=== PATIENT | male | born 1955 | race Caucasian/White ===

== ENCOUNTER 2019-03-12 03:43 | Inpatient (IN) ==
[2019-03-12] MEDS ORDERED: Ondansetron 4 MG/2 ML VIAL IVP ONE (03:47)
[2019-03-12] MEDS ORDERED: Morphine Sulfate 2 MG/ML SYRINGE IVP ONE (03:47)
[2019-03-12] MEDS ORDERED: *HR* Heparin 5,000 UNIT/ML VIAL IVP ONE (03:49)
[2019-03-12] MEDS ORDERED: *HR* Ticagrelor 90 MG TABLET PO ONE (03:51)
[2019-03-12] MEDS ORDERED: 0.9 % Sodium Chloride 1,000 ML IVC ONE (03:52)
[2019-03-12] MEDS ORDERED: *HR* Ticagrelor 90 MG TABLET ONE (03:56)
[2019-03-12] MEDS ORDERED: *HR* Heparin 5,000 UNIT/ML VIAL ONE (03:56)
[2019-03-12] MEDS ORDERED: 0.9 % Sodium Chloride 1,000 ML ONE (03:56)
[2019-03-12] MEDS: Nitroglycerin 0.4 MG TAB.SUBL SL PRN ×2 (04:10→13:13)
[2019-03-12 04:16] LABS: Basophils # 0.1 K/mcL (0.0-0.2); Basophils % 1.2 %; Eosinophils # 0.6 K/mcL (0.0-0.6); Eosinophils % 6.6 %; Hematocrit 42.7 % (37.5-50.1); Immature Granulocytes % 0.3 % (0-4); Lymphocytes # 1.6 K/mcL (0.6-4.6); Mean Corpuscular HGB Conc 32.8 g/dL (31.6-35.5); Mean Corpuscular Hemoglobin 27.3 pg (28.0-33.3); Mean Corpuscular Volume 83.4 fL (83.0-100.0); Monocytes # 0.9 K/mcL (0.0-1.3); Monocytes % 10.4 %; Neutrophils # 5.4 K/mcL (1.6-8.9); Platelet Count 289 K/mcL (140-400); Red Blood Count 5.12 M/mcL (4.19-5.50); Red Cell Distribution Width 15.1 % (11.5-14.5); Segmented Neutrophils % 62.5 %; White Blood Count 8.6 K/mcL (4.3-11.1)
[2019-03-12] MEDS ORDERED: Heparin 1,000 UNITS/500 mL 500 ML ONE (04:20)
[2019-03-12] MEDS ORDERED: ISOVUE-370 200 ML INFUS..BTL ONE ×2 (04:20→05:13)
[2019-03-12] MEDS ORDERED: Nitroglycerin 1,000 MCG/10 ML VIAL IV ONE (04:20)
[2019-03-12] MEDS ORDERED: *HR* Heparin 10,000 UNIT/10 ML VIAL ONE (04:20)
[2019-03-12] MEDS ORDERED: 0.9 % Sodium Chloride 2,000 ML ONE (04:20)
[2019-03-12 04:26] LABS: INR 1.1; Prothrombin Time 12.7 Seconds (9.4-12.1)
[2019-03-12 04:28] LABS: Activated Partial Thrombo Time 33.2 Seconds (26.0-36.0)
[2019-03-12] MEDS ORDERED: *HR* FentaNYL (PF) 100 MCG/2 ML VIAL ONE (04:30)
[2019-03-12] MEDS ORDERED: *HR* Midazolam HCl 2 MG/2 ML VIAL ONE (04:30)
[2019-03-12] MEDS ORDERED: Verapamil 5 MG/2 ML VIAL ONE (04:30)
[2019-03-12 04:33] LABS: BUN/Creatinine Ratio 27 (6-26); Blood Urea Nitrogen 28 mg/dL (8-23); Calcium 9.8 mg/dL (8.6-10.3); Carbon Dioxide 28 mEq/L (23-29); Chloride 102 mEq/L (98-107); Glucose 149 mg/dL (70-105); Osmolality,Calculated 290 (280-300); Potassium 3.8 mEq/L (3.5-5.1); Sodium 136 mEq/L (136-145); eGFR For African Americans > 60 (> 60); eGFR For Non-African Americans > 60 (> 60)
[2019-03-12 04:40] LABS: Troponin I 0.18 ng/mL (< 0.04)
[2019-03-12] MEDS ORDERED: Perflutren Lipid Microsphere 1.3 ML in 0.9 % Sodium Chloride 8.7 ML IVP ONE (07:13)
[2019-03-12] MEDS: Aspirin Enteric Coated 81 MG Tablet PO SCH (08:13)
[2019-03-12] MEDS: *HR* Ticagrelor 90 MG TABLET PO SCH ×2 (08:13→20:27)
[2019-03-12] MEDS: *HR* OxyCODONE Immed Rel 15 MG TABLET PO PRN (17:55)
[2019-03-13] MEDS: *HR* OxyCODONE Immed Rel 15 MG TABLET PO PRN ×3 (02:18→19:32)
[2019-03-13 06:47] LABS: Basophils # 0.1 K/mcL (0.0-0.2); Basophils % 0.6 %; Eosinophils # 0.3 K/mcL (0.0-0.6); Eosinophils % 3.4 %; Hematocrit 38.3 % (37.5-50.1); Hemoglobin 12.5 g/dL (12.9-16.9); Immature Granulocytes % 0.2 % (0-4); Lymphocytes # 1.5 K/mcL (0.6-4.6); Lymphocytes % 15.1 %; Mean Corpuscular HGB Conc 32.6 g/dL (31.6-35.5); Mean Corpuscular Hemoglobin 27.4 pg (28.0-33.3); Mean Corpuscular Volume 83.8 fL (83.0-100.0); Mean Platelet Volume 11.7 fL (9.4-12.4); Monocytes # 0.9 K/mcL (0.0-1.3); Monocytes % 9.4 %; Platelet Count 221 K/mcL (140-400); Red Blood Count 4.57 M/mcL (4.19-5.50); Red Cell Distribution Width 15.4 % (11.5-14.5); Segmented Neutrophils % 71.3 %; White Blood Count 9.8 K/mcL (4.3-11.1)
[2019-03-13 07:11] LABS: BUN/Creatinine Ratio 19 (6-26); Blood Urea Nitrogen 16 mg/dL (8-23); Calcium 8.8 mg/dL (8.6-10.3); Carbon Dioxide 24 mEq/L (23-29); Chloride 105 mEq/L (98-107); Glucose 118 mg/dL (70-105); Osmolality,Calculated 286 (280-300); Sodium 137 mEq/L (136-145); Troponin I 8.33 ng/mL (< 0.04); eGFR For African Americans > 60 (> 60); eGFR For Non-African Americans > 60 (> 60)
[2019-03-13] MEDS: *HR* Ticagrelor 90 MG TABLET PO SCH ×2 (08:49→21:59)
[2019-03-13] MEDS: Aspirin Enteric Coated 81 MG Tablet PO SCH (08:49)
[2019-03-13] MEDS ORDERED: Perflutren Lipid Microsphere 1.3 ML in 0.9 % Sodium Chloride 8.7 ML IVP ONE ×2 (09:41→13:14)
[2019-03-13] MEDS ORDERED: *HR* Heparin 5,000 UNIT/ML VIAL SQ SCH (10:00)
[2019-03-13] MEDS ORDERED: Nitroglycerin 0.4 MG TAB.SUBL SL PRN (13:14)
[2019-03-13] MEDS: *HR* Heparin 5,000 UNIT/ML VIAL SQ SCH (19:31)
[2019-03-14] MEDS ORDERED: Ondansetron ODT 4 MG TAB.RAPDIS SL PRN (06:54)
[2019-03-14] MEDS: *HR* Heparin 5,000 UNIT/ML VIAL SQ SCH (07:18)
[2019-03-14 07:42] VITALS: BP 125/74
[2019-03-14] MEDS: *HR* Ticagrelor 90 MG TABLET PO SCH (08:11)
[2019-03-14] MEDS: *HR* OxyCODONE Immed Rel 15 MG TABLET PO PRN (08:12)
[2019-03-14] MEDS ORDERED: NON-FORMULARY MEDICATION 1 EACH EACH (Umeclidinium Brm/Vilanterol Tr [Anoro Ellipta 62.5-2 IH SCH (09:00)
[2019-03-14] MEDS ORDERED: Aspirin Enteric Coated 81 MG Tablet PO SCH (09:00)
== END 2019-03-14 10:20 | disposition home or self-care (01) | DRG 247 ==
LOC: EMEROOARM 03:43 → ICNU 04:14 → 2NNU 03-13 18:08
PROVIDERS: ADMIT Internal Medicine; ATTEND Internal Medicine